=== PATIENT | male | born 1930 | race Caucasian/White ===

== ENCOUNTER 2016-05-17 04:25 | Emergency (ER) | payer MEDICARE, OTHER ==
[~2016-05-17 04:25] MED LIST: ASPI81 PO; LISI-363 PO; MULT-112 PO; NEBI20 PO; SUPETAB30 PO; VITA400C70 PO; VYTO10TA35 PO
[2016-05-17 04:29] VITALS: BP 161/65; PULSE 75; RESP 16; TEMP 98.4; O2SAT 97
[2016-05-17] MEDS ORDERED: LORA-373 PO (04:32)
[2016-05-17 04:37] VITALS: PULSE 47; RESP 16; O2SAT 97
[2016-05-17] MEDS ORDERED: ONDANSETRON HCL 4 MG/2 ML VIAL IVP ONE (04:45)
[2016-05-17] MEDS ORDERED: SODIUM CHLORIDE 0.9% FLUSH 5 ML FLUSH IVF PRN (04:45)
[2016-05-17 04:52] LABS: AUTOMATED NEUTROPHIL # 3.4 TH/MM3 (1.8-7.7); BASOPHIL # 0.1 TH/MM3 (0-0.2); BASOPHIL % 1.3 % (0.0-2.0); EOSINOPHIL # 0.1 TH/MM3 (0-0.4); EOSINOPHIL % 1.5 % (0.0-4.0); HEMO FLAGS DIFF FINAL; LYMPH % 42.4 % (9.0-44.0); LYMPHOCYTE # 3.2 TH/MM3 (1.0-4.8); MEAN CELL VOLUME 89.4 FL (80.0-100.0); MEAN CORPUSCULAR HEMOGLOBIN 30.4 PG (27.0-34.0); MONO % 9.3 % (0.0-8.0); NEUT % 45.5 % (16.0-70.0); PLATELET COUNT 239 TH/MM3 (150-450); RED CELL DISTRIBUTION WIDTH 14.4 % (11.6-17.2); WHITE BLOOD COUNT 7.5 TH/MM3 (4.0-11.0)
--- NOTE | 2016-05-17 05:13 | PD ---
HPI Chief Complaint: GI Complaint Time Seen by Provider: 04:29 Travel History International Travel<30 days: No Contact w/Intl Traveler<30days: No Traveled to known affect area: No History of Present Illness HPI 86-year-old male with history of CAD and dementia here with complaint of abdominal pain. Patient is a poor historian. Apparently he woke up out of bed with plain. Abdominal pain, nausea. Transported via EMS, blood glucose 150. Given 4 mg Zofran en route. EMS note no vomiting but dry heaving. Upon my evaluation patient initially denies any abdominal pain and states that he just feels queasy. Upon further questioning he does admit to some abdominal pain but is unable to localize this. States that the pain is somewhat crampy and occasionally sharp. Denies any fevers, chills, urinary or bowel symptoms. Last bowel movement approximately 1-2 days ago. No hematemesis or hematochezia. Patient denies any previous abdominal surgery. PFSH Past Medical History Arthritis: Yes Cardiovascular Problems: Yes Coronary Artery Disease: Yes Dementia: Yes Hypertension: Yes Past Surgical History Thoracic Surgery: Yes Other Surgery: Yes Social History Alcohol Use: Yes (OCC) Tobacco Use: No Substance Use: No Allergies-Medications (Allergen,Severity, Reaction): Coded Allergies: No Known Allergies (Unverified , 05/17/16) Reported Meds & Prescriptions Reported Meds & Active Scripts Active Reported Lorazepam 0.5 Mg Tab 0.5 Mg PO DAILY PRN Review of Systems ROS Limitations: Poor Historian Except as stated in HPI: all other systems reviewed are Neg Physical Exam Exam Limitations: Poor Historian Narrative GENERAL: Elderly male in no acute distress SKIN: Warm and dry. HEAD: Normocephalic. EYES: No scleral icterus. No injection or drainage. ENT: Mucous membranes pink and moist. NECK: Supple CARDIOVASCULAR: Bradycardic with heart rate in the 40s to 60s, regular rhythm No murmur appreciated. RESPIRATORY: No accessory muscle use. Clear to auscultation. Breath sounds equal bilaterally. GASTROINTESTINAL: Abdomen soft, right sided abdominal tenderness to palpation without rebound or guarding. No CVA tenderness. MUSCULOSKELETAL: Moves all extremities normally NEUROLOGICAL: Awake and alert. Motor grossly within normal limits. Normal speech. PSYCHIATRIC: Appropriate mood and affect; insight and judgment normal. Data Data Last Documented VS Vital Signs Date Time Temp Pulse Resp B/P Pulse Ox O2 Delivery O2 Flow Rate FiO2 05/17/16 04:37 47 16 97 Room Air 05/17/16 04:29 98.4 161/65 Orders Complete Blood Count With Diff (05/17/16 04:34) Comprehensive Metabolic Panel (05/17/16 04:34) Lipase (05/17/16 04:34) Lactic Acid (05/17/16 04:34) Urinalysis - C+S If Indicated (05/17/16 04:34) Ct Abd/Pel W/O Iv Contrast (05/17/16 04:34) Iv Access Insert/Monitor (05/17/16 04:34) Ecg Monitoring (05/17/16 04:34) Oximetry (05/17/16 04:34) Sodium Chloride 0.9% Flush (Ns Flush) (05/17/16 04:45) Electrocardiogram (05/17/16 04:34) Ondansetron Inj (Zofran Inj) (05/17/16 04:45) Diphenhydramine Inj (Benadryl Inj) (05/17/16 05:15) Metoclopramide Inj (Reglan Inj) (05/17/16 05:15) Morphine Inj (Morphine Inj) (05/17/16 05:15) Troponin I (05/17/16 06:07) Labs Laboratory Tests Test 05/17/16 05/17/16 04:40 05:15 White Blood Count 7.5 TH/MM3 Red Blood Count 4.70 MIL/MM3 Hemoglobin 14.3 GM/DL Hematocrit 42.0 % Mean Corpuscular Volume 89.4 FL Mean Corpuscular Hemoglobin 30.4 PG Mean Corpuscular Hemoglobin 34.0 % Concent Red Cell Distribution Width 14.4 % Platelet Count 239 TH/MM3 Mean Platelet Volume 7.9 FL Neutrophils (%) (Auto) 45.5 % Lymphocytes (%) (Auto) 42.4 % Monocytes (%) (Auto) 9.3 % Eosinophils (%) (Auto) 1.5 % Basophils (%) (Auto) 1.3 % Neutrophils # (Auto) 3.4 TH/MM3 Lymphocytes # (Auto) 3.2 TH/MM3 Monocytes # (Auto) 0.7 TH/MM3 Eosinophils # (Auto) 0.1 TH/MM3 Basophils # (Auto) 0.1 TH/MM3 CBC Comment DIFF FINAL Differential Comment Sodium Level 142 MEQ/L Potassium Level 3.6 MEQ/L Chloride Level 109 MEQ/L Carbon Dioxide Level 25.5 MEQ/L Anion Gap 8 MEQ/L Blood Urea Nitrogen 16 MG/DL Creatinine 1.04 MG/DL Estimat Glomerular Filtration 68 ML/MIN Rate Random Glucose 118 MG/DL Lactic Acid Level 1.7 mmol/L Calcium Level 8.0 MG/DL Total Bilirubin 0.6 MG/DL Aspartate Amino Transf 15 U/L (AST/SGOT) Alanine Aminotransferase 12 U/L (ALT/SGPT) Alkaline Phosphatase 47 U/L Troponin I LESS THAN 0.02 NG/ML Total Protein 6.4 GM/DL Albumin 3.4 GM/DL Lipase 97 U/L Urine Color YELLOW Urine Turbidity CLEAR Urine pH 5.0 Urine Specific [place] 1.017 Urine Protein NEG mg/dL Urine Glucose (UA) NEG mg/dL Urine Ketones NEG mg/dL Urine Occult Blood SMALL Urine Nitrite NEG Urine Bilirubin NEG Urine Urobilinogen LESS THAN 2.0 MG/DL Urine Leukocyte Esterase NEG Urine RBC 6 /hpf Urine WBC 1 /hpf Urine Hyaline Casts 1 /lpf Urine Mucus FEW /lpf Microscopic Urinalysis Comment CULT NOT INDICATED MDM Medical Decision Making Medical Screen Exam Complete: Yes Emergency Medical Condition: Yes Medical Record Reviewed: Yes Differential Diagnosis 86-year-old male here with abdominal pain onset within the last 1-2 hours with nausea. Patient having some dry heaving, phlegm production on exam but no emesis. He has right sided abdominal tenderness to palpation. Differential includes gastritis, pancreatitis, hepatobiliary pathology, appendicitis, bowel obstruction, right sided diverticulitis, ACS, UTI, ureterolithiasis. Narrative Course Patient placed on monitor, IV established and blood obtained. Given 4 mg Zofran , declined analgesics. Twelve-lead EKG shows sinus bradycardia, rate 47. Q waves in inferior leads 3, aVF. No notable ST abnormalities, normal intervals. CBC, CMP, lipase, urinalysis, lactate unremarkable. Patient still nauseated and dry heaving. Given 25 mg Benadryl, [address] abdomen and pelvis showed right inguinal hernia containing small bowel and free fluid. Bowel proximal to the hernia does not appear dilated to suggest bowel obstruction. I attempted reduction at bedside, the patient uncomfortable and unable to reduce. He was given 4 mg morphine. Patient now complaining of a "nausea in my chest ". Therefore troponin was added onto blood work, think this is negative. After morphine, ice the groin. He pressure resulted in successful reduction of patient's right inguinal hernia. He immediately had resolution of his right sided abdominal pain and no longer felt nauseated. He was able to tolerate oral challenge and will be discharged home with outpatient general surgery follow-up for elective repair is needed. Diagnosis Primary Impression: Right inguinal hernia Additional Impression: Nausea Referrals: Vladimir Cheung MD as needed General Surgeon as needed Additional Instructions: Follow-up with general surgeon as needed for hernia repair. This continues to give you issues. Tylenol, ibuprofen for any residual pain. Med/Other Pt SpecificInfo: No Change to Meds Disposition: 01 DISCHARGE HOME Condition: Stable Zhane Arnold MD May 17, 2016 05:12
[2016-05-17 05:15] LABS: ALT (GPT) 12 U/L (12-78); ANION GAP 8 MEQ/L (5-15); AST (GOT) 15 U/L (15-37); BICARBONATE 25.5 MEQ/L (21.0-32.0); BLOOD UREA NITROGEN 16 MG/DL (7-18); CHLORIDE 109 MEQ/L (98-107); GLOMERULAR FILTRATION RATE 68 ML/MIN (>89); POTASSIUM 3.6 MEQ/L (3.5-5.1); SODIUM (NA) 142 MEQ/L (136-145)
[2016-05-17] MEDS ORDERED: MORPHINE SULFATE 4 MG/ML INJ IV PUSH ONE (05:15)
[2016-05-17] MEDS ORDERED: METOCLOPRAMIDE HCL 10 MG/2 ML VIAL IVP ONE (05:15)
[2016-05-17] MEDS ORDERED: diphenhydrAMINE HCL 50 MG/ML VIAL IVP ONE (05:15)
[2016-05-17 05:16] LABS: ALKALINE PHOSPHATASE 47 U/L (45-117); TOTAL BILIRUBIN ADULT 0.6 MG/DL (0.2-1.0)
[2016-05-17 05:27] LABS: BLOOD, URINE SMALL (NEG); COMMENT (UR) CULT NOT INDICATED; CULTURE IF INDICATED CULT NOT INDICATED; GLUCOSE,URINE NEG (NEG); HYALINE CAST, URINE 1 /lpf (RARE); KETONE, URINE NEG (NEG); MUCUS URINE FEW /lpf (OCC); NITRITE,URINE NEG (NEG); URINE COLOR YELLOW (YELLW/STRAW)
--- NOTE | 2016-05-17 06:01 | RADRPT ---
EXAM DATE/TIME: 05/17/2016 05:32 [facility] COMPARISON: No previous studies available for comparison. INDICATIONS : Upper abdominal pain with nausea and vomiting. ORAL CONTRAST: No oral contrast ingested. RADIATION DOSE: 11.47 CTDIvol (mGy) MEDICAL HISTORY : Hypertension. Cardiovascular disease Coronary artery disease. SURGICAL HISTORY : Right hip replacement. ENCOUNTER: Initial ACUITY: 1 day PAIN SCALE: 3/10 LOCATION: upper quadrant abdomen TECHNIQUE: Volumetric scanning of the abdomen and pelvis was performed. Using automated exposure control and ad justment of the mA and/or kV according to patient size, radiation dose was kept as low as reasonably achievable to obtain optimal diagnostic quality images. FINDINGS: LOWER LUNGS: There are calcified pleural plaques in the inferior hemithoraces bilaterally. Patient is post aortic valve replacement and there is coronary artery calcification. LIVER: Homogeneous density without a definite lesion seen. There is no dilation of the biliary tree. No ca lcified gallstones. SPLEEN: Normal size without lesion. PANCREAS: Within normal limits. KIDNEYS: Normal in size and shape. There is no mass, stone, or hydronephrosis. ADRENAL GLANDS: Within normal limits. VASCULAR: There is no aortic aneurysm. There is severe atherosclerotic disease. BOWEL/MESENTERY: The stomach, small bowel, and colon demonstrate no acute abnormality. There are periduodenal diverti culum is present. There is mild sigmoid diverticulosis. Small bowel extends into the right inguinal h ernia. There is no free intraperitoneal air or fluid. ABDOMINAL WALL: Within normal limits. RETROPERITONEUM: There is no lymphadenopathy. BLADDER: No wall thickening or mass. REPRODUCTIVE: Within normal limits. INGUINAL: There is a large right inguinal hernia that originates lateral to the inferior epigastric vessels. It contains distal small bowel and free fluid. The proximal small bowel is not dilated. MUSCULOSKELETAL: There degenerative changes of the lumbar spine with bilateral pars defects at L5. Right hip hardware is present related to total hip arthroplasty. 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 CONCLUSION: 1. There is a right inguinal hernia containing small bowel and free fluid. The small bowel proximal t o the hernia is not dilated suggesting against bowel obstruction. 2. 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 Hakan Hernandez MD on May 17, 2016 at 5:54 Board Certified Radiologist. This report was verified electronically.
--- NOTE | 2016-05-17 12:50 | EKG ---
Date Performed: 05/17/2016 Time Performed: 04:48:08 PTAGE: 86 years EKG: SINUS BRADYCARDIA INFERIOR MYOCARDIAL INFARCTION Since previous tracing, no significant stan nge noted ABNORMAL ECG PREVIOUS TRACING : 12/23/2012 08.37 DOCTOR: Walker Green Interpretating Date/Time 05/17/2016 12:49:34
== END 2016-05-17 07:48 | disposition home or self-care (01) ==
LOC: NEPE 04:25
DX: K40.90 Unilateral inguinal hernia, without obstruction or gangrene, not specified as recurrent (principal); R00.1 Bradycardia, unspecified; I25.10 Atherosclerotic heart disease of native coronary artery without angina pectoris; F03.90 Unspecified dementia, unspecified severity, without behavioral disturbance, psychotic disturbance, mood disturbance, and anxiety; I10 Essential (primary) hypertension
CPT/HCPCS: 74176; 80053; 81001; 83605; 83690; 84484; 85025; 93005; 96374; 96375; 99284; J1200; J2270; J2405; J2765

== ENCOUNTER 2016-08-14 12:42 | Emergency (ER) | payer MEDICARE, OTHER ==
[~2016-08-14 12:42] MED LIST changes: -ASPI81 PO; -LISI-363 PO; +LORA-373 PO; -MULT-112 PO; -NEBI20 PO; -SUPETAB30 PO; -VITA400C70 PO; -VYTO10TA35 PO
[2016-08-14 12:56] VITALS: BP 156/71; PULSE 76; RESP 16; TEMP 98.1; O2SAT 99
--- NOTE | 2016-08-14 13:13 | PD ---
HPI Chief Complaint: Altered Mental Status Time Seen by Provider: 12:56 Travel History International Travel<30 days: No Contact w/Intl Traveler<30days: No Traveled to known affect area: No History of Present Illness HPI This patient is sent from his assisted living facility for evaluation. She report that he was found dozing off in the lobby of the assisted-living facility and they felt he was drowsy and wanted him to get checked out. He does use Ativan as needed for anxiety. He denies taking any today. He feels well at this time. He does not seem drowsy. He denies headache or injury. He does have history of dementia. Symptoms severity is mild. Duration 3 hours. No alleviating factors PFSH Past Medical History Arthritis: Yes Cardiovascular Problems: Yes Coronary Artery Disease: Yes Dementia: Yes Hypertension: Yes Past Surgical History Thoracic Surgery: Yes Other Surgery: Yes Social History Alcohol Use: Yes (OCC) Tobacco Use: No Substance Use: No Allergies-Medications (Allergen,Severity, Reaction): Coded Allergies: No Known Allergies (Unverified , 05/17/16) Reported Meds & Prescriptions Reported Meds & Active Scripts Active Reported Lorazepam 0.5 Mg Tab 0.5 Mg PO DAILY PRN Review of Systems General / Constitutional: No: Fever Eyes: No: Visual changes HENT: No: Headaches Cardiovascular: No: Chest Pain or Discomfort Respiratory: No: Shortness of Breath Gastrointestinal: No: Abdominal Pain Genitourinary: No: Dysuria Musculoskeletal: No: Pain Skin: No Rash Neurologic: Positive: Change in Mentation, No: Weakness Psychiatric: No: Depression Endocrine: No: Polydipsia Hematologic/Lymphatic: No: Easy Bruising Physical Exam Narrative GENERAL: Well-nourished, well-developed patient in no apparent distress. SKIN: Focused skin assessment reveals no rash and nodules. Skin is Warm and dry. HEAD: Atraumatic. Normocephalic. EYES: Pupils equal and round. No scleral icterus. No injection or drainage. ENT: No nasal bleeding or discharge. Mucous membranes pink and moist. NECK: Trachea midline. No JVD. No meningeal signs CARDIOVASCULAR: Regular rate and rhythm. No murmur appreciated. RESPIRATORY: No accessory muscle use. Clear to auscultation. Breath sounds equal bilaterally. GASTROINTESTINAL: Abdomen soft, non-tender, nondistended. Hepatic and splenic margins not palpable. MUSCULOSKELETAL: No obvious deformities. No clubbing. No cyanosis. No edema. NEUROLOGICAL: Awake and alert. No obvious cranial nerve deficits. Motor grossly within normal limits. Normal speech. PSYCHIATRIC: Appropriate mood and affect; insight and judgment consistent with mild dementia. Data Data Last Documented VS Vital Signs Date Time Temp Pulse Resp B/P Pulse Ox O2 Delivery O2 Flow Rate FiO2 08/14/16 13:27 Room Air 08/14/16 12:56 98.1 76 16 156/71 99 Orders Complete Blood Count With Diff (08/14/16 13:01) Basic Metabolic Panel (Bmp) (08/14/16 13:01) Urinalysis - C+S If Indicated (08/14/16 13:01) Iv Access Insert/Monitor (08/14/16 13:01) Labs Laboratory Tests Test 08/14/16 13:10 White Blood Count 9.5 TH/MM3 Red Blood Count 4.68 MIL/MM3 Hemoglobin 14.1 GM/DL Hematocrit 41.5 % Mean Corpuscular Volume 88.5 FL Mean Corpuscular Hemoglobin 30.1 PG Mean Corpuscular Hemoglobin 34.1 % Concent Red Cell Distribution Width 14.4 % Platelet Count 146 TH/MM3 Mean Platelet Volume 7.7 FL Neutrophils (%) (Auto) 76.4 % Lymphocytes (%) (Auto) 12.5 % Monocytes (%) (Auto) 10.6 % Eosinophils (%) (Auto) 0.0 % Basophils (%) (Auto) 0.5 % Neutrophils # (Auto) 7.3 TH/MM3 Lymphocytes # (Auto) 1.2 TH/MM3 Monocytes # (Auto) 1.0 TH/MM3 Eosinophils # (Auto) 0.0 TH/MM3 Basophils # (Auto) 0.0 TH/MM3 CBC Comment DIFF FINAL Differential Comment Urine Color YELLOW Urine Turbidity CLEAR Urine pH 6.0 Urine Specific [place] 1.018 Urine Protein 30 mg/dL Urine Glucose (UA) NEG mg/dL Urine Ketones 15 mg/dL Urine Occult Blood TRACE Urine Nitrite NEG Urine Bilirubin NEG Urine Urobilinogen 0.2 MG/DL Urine Leukocyte Esterase NEG Urine RBC 0-3 /hpf Urine WBC 0-2 /hpf Urine Bacteria RARE /hpf Sodium Level 135 MEQ/L Potassium Level 3.8 MEQ/L Chloride Level 100 MEQ/L Carbon Dioxide Level 25.8 MEQ/L Anion Gap 9 MEQ/L Blood Urea Nitrogen 11 MG/DL Creatinine 0.87 MG/DL Estimat Glomerular Filtration 84 ML/MIN Rate Random Glucose 94 MG/DL Calcium Level 8.8 MG/DL [facility] [place] Medical Decision Making Medical Screen Exam Complete: Yes Emergency Medical Condition: Yes Medical Record Reviewed: Yes Differential Diagnosis Exacerbation of dementia, medication side effect, electrolyte abnormality, UTI Narrative Course I have reviewed the patient's electronic medical record. Reviewed his prison paperwork including medication list and ambulance run sheet IV placed CBC is normal Metabolic profile is normal Urinalysis is clean Patient is basically asymptomatic and clinically looks well. Appears to have mild dementia but doesn't seem particular confused beyond that Certainly he does not have delirium Patient stable for return to the assisted living facility. I don't see any evidence of significant alteration of mental status. 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 Limit Ativan usage Med/Other Pt SpecificInfo: Other Disposition: DISCHARGE HOME Condition: Stable Virgil King MD August 14, 2016 13:13
[2016-08-14 13:41] LABS: AUTOMATED NEUTROPHIL # 7.3 TH/MM3 (1.8-7.7); BASOPHIL % 0.5 % (0.0-2.0); HEMATOCRIT 41.5 % (39.0-51.0); HEMO FLAGS DIFF FINAL; LYMPH % 12.5 % (9.0-44.0); LYMPHOCYTE # 1.2 TH/MM3 (1.0-4.8); MEAN CELL VOLUME 88.5 FL (80.0-100.0); MEAN CORPUSCULAR HEMOGLOBIN 30.1 PG (27.0-34.0); MEAN CORPUSCULAR HGB CONC 34.1 % (32.0-36.0); MONO % 10.6 % (0.0-8.0); NEUT % 76.4 % (16.0-70.0); PLATELET COUNT 146 TH/MM3 (150-450); RED BLOOD COUNT 4.68 MIL/MM3 (4.50-5.90); RED CELL DISTRIBUTION WIDTH 14.4 % (11.6-17.2); WHITE BLOOD COUNT 9.5 TH/MM3 (4.0-11.0)
[2016-08-14 13:46] LABS: GLUCOSE,URINE NEG (NEG); KETONE, URINE 15 mg/dL (NEG); NITRITE,URINE NEG (NEG)
[2016-08-14 13:50] LABS: BLOOD, URINE TRACE (NEG)
[2016-08-14 13:57] LABS: BICARBONATE 25.8 MEQ/L (21.0-32.0); POTASSIUM 3.8 MEQ/L (3.5-5.1)
[2016-08-14 14:00] LABS: URINE COLOR YELLOW (YELLW/STRAW)
[2016-08-14 14:01] LABS: BACTERIA, URINE RARE /hpf; CULTURE IF INDICATED CULT NOT INDICATED; RBC, URINE 0-3 /hpf (0-3); WBC, URINE 0-2 /hpf (0-5)
[2016-08-14 14:35] VITALS: BP 149/81
--- NOTE | 2016-08-15 10:27 | EKG ---
Date Performed: 08/14/2016 Time Performed: 13:01:58 PTAGE: 86 years EKG: Sinus rhythm INFERIOR MYOCARDIAL INFARCTION ABNORMAL ECG NO PREVIOUS TRACING DOCTOR: Eveline Pederson Interpretating Date/Time 08/15/2016 10:26:49
== END 2016-08-14 15:19 | disposition home or self-care (01) ==
LOC: NEPD 12:42
DX: G30.9 Alzheimer's disease, unspecified (principal); F02.80 Dementia in other diseases classified elsewhere, unspecified severity, without behavioral disturbance, psychotic disturbance, mood disturbance, and anxiety; I10 Essential (primary) hypertension
CPT/HCPCS: 80048; 81001; 85025; 93005; 99285